=== PATIENT | male | born 1940 | race Caucasian/White ===

== ENCOUNTER → 2016-09-11 | Outpatient (CLI) | payer OTHER ==
[2010-08-13 16:22] VITALS: BP 148/70
[2016-09-11 11:57] LABS: HEMATOCRIT 42.8 % (42.0-52.0); HEMOGLOBIN 13.6 g/dL (14.0-18.0); MEAN CORPUSCULAR HEMOGLOBIN 30.8 PG (27-31); MEAN CORPUSCULAR HGB CONC 31.8 g/dL (33-37); MEAN CORPUSCULAR VOLUME 97.1 FL (80-90); MEAN PLATELET VOLUME 9.7 FL (7.4-12.2); RED BLOOD COUNT 4.41 10^6/uL (4.70-6.10)
[2016-09-11 12:16] LABS: BLOOD UREA NITROGEN 32 mg/dL (7-22); BUN/CREATININE RATIO 18.82 (6-20); CALCIUM 9.4 mg/dL (8.7-10.7); PHOSPHORUS 3.7 mg/dl (2.4-4.3); SERUM ALBUMIN 3.9 g/dL (3.5-4.8)
== END ==
LOC: LAB 11:43
PROVIDERS: ATTEND Physician Assistant Medical
DX: I12.9 Hypertensive chronic kidney disease with stage 1 through stage 4 chronic kidney disease, or unspecified chronic kidney disease (principal); N18.3 Chronic kidney disease, stage 3 (moderate); D63.1 Anemia in chronic kidney disease; N25.81 Secondary hyperparathyroidism of renal origin
CPT/HCPCS: 36415; 80069; 83970; 85027

== ENCOUNTER → 2016-10-02 | Outpatient (CLI) | payer OTHER ==
[2010-08-13 16:22] VITALS: BP 148/70
--- NOTE | 2016-10-02 14:46 | DI ---
PA /LATERAL CHEST X-RAY, 10/02/2016 1:12 PM : Clinical History: Dyspnea. Previous Exam: 01/24/2015. There is no acute soft tissue or bony abnormality. Heart size is normal. There are 2, 5 mm circular d ensities in both lower lung lopez on the PA film in these were present on the previous study and hav e not changed. The location of each density is consistent with nipple silhouettes. Mediastinal struct ures are normal. There are no pulmonary nodules. Reading: Normal chest x-ray. There has been no interval change.
== END ==
LOC: RAD 13:04
PROVIDERS: ATTEND Internal Medicine Pulmonary Disease
DX: R06.02 Shortness of breath (principal); R06.00 Dyspnea, unspecified
CPT/HCPCS: 71020

== ENCOUNTER → 2017-01-13 | Outpatient (CLI) | payer OTHER ==
[2010-08-13 16:22] VITALS: BP 148/70
[2017-01-13 15:57] LABS: BLOOD UREA NITROGEN 40 mg/dL (7-22); BUN/CREATININE RATIO 22.22 (6-20); CALCIUM 9.2 mg/dL (8.7-10.7); SERUM ALBUMIN 3.7 g/dL (3.5-4.8)
== END ==
LOC: LAB 15:15
PROVIDERS: ATTEND Internal Medicine Nephrology
DX: N18.3 Chronic kidney disease, stage 3 (moderate) (principal); N25.81 Secondary hyperparathyroidism of renal origin; D50.9 Iron deficiency anemia, unspecified
CPT/HCPCS: 36415; 80069; 83540; 83550; 83970